=== PATIENT | female | born 1970 | race Caucasian/White ===

== ENCOUNTER 2016-10-13 21:24 | Inpatient (IN) ==
[2016-10-13 21:53] LABS: BASO% 0.1 % (0.0-0.8); EOS# 0.01 X1000 (0.0-0.7); EOS% 0.1 % (0.0-10.0); HEMATOCRIT 38.8 % (37.0-47.0); HEMOGLOBIN 14.8 g/dL (12.0-16.0); IMM GRAN# 0.03 X1000 (0.0-0.04); IMM GRAN% 0.2 % (0.0-0.5); LYMPH# 1.34 X1000 (1.2-3.4); LYMPH% 9.6 % (20.5-51.1); MANUAL DIFF NEEDED? NO; MCH 34.3 PG (27-31); MCHC 38.1 g/dL (33-37); MONO# 1.21 X1000 (0.11-0.59); MONO% 8.7 % (1.7-9.3); MPV 9.9 FL (7.4-10.4); NEUT% 81.3 % (42.2-75.2); PLT 226 X1000 (130-400); RBC 4.31 XMIL (4.2-5.4)
[2016-10-13 22:09] LABS: AGAP 15; ALBUMIN 3.1 g/dL (3.5-5.0); ALKALINE PHOSPHATASE 77 U/L (32-104); AMYLASE 135 U/L (20-200); BUN 10 mg/dL (8-22); CALCIUM 8.5 mg/dL (8.8-10.2); CHLORIDE 92 mmol/L (98-107); COSMO 254; LIPASE 159 U/L (13-60); POTASSIUM 3.8 mmol/L (3.5-5.1); SODIUM 126 mmol/L (136-145); TCO2 19 mmol/L (25-35); TOTAL BILIRUBIN 0.16 mg/dL (0.20-1.00)
[2016-10-13 22:37] LABS: GOT 27 U/L (10-30); GPT 6 U/L (10-36)
[2016-10-13] MEDS ORDERED: NS 1,000 ML IV ONE (23:40)
[2016-10-13] MEDS ORDERED: PHENERGAN IM ONE (23:40)
[2016-10-14 00:39] LABS: URINE MICRO REVIEW NEEDED? NO; URINE SOURCE CLEAN CATCH
[2016-10-14] MEDS ORDERED: ZOFRAN IV ONE ×2 (00:39→01:21)
[2016-10-14] MEDS ORDERED: MORPHINE IV ONE ×2 (00:39→01:21)
[2016-10-14 00:46] LABS: BILIRUBIN URINE NEGATIVE (NEGATIVE); BLOOD URINE NEGATIVE (NEGATIVE); COLOR YELLOW; GLUCOSE URINE NEGATIVE (NEGATIVE); LEUKOCYTES URINE NEGATIVE (NEGATIVE); NITRITE URINE NEGATIVE (NEGATIVE); PH URINE 8.5; PROTEIN URINE TRACE mg/dL (NEGATIVE); SP GRAVITY URINE 1.019; TURBIDITY URINE TURBID (CLEAR); UROBILINOGEN URINE NORMAL (NORMAL)
[2016-10-14 00:47] LABS: UR EPITHELIAL CELLS <10 /HPF (<10); URINE BACTERIA 2+ /HPF; URINE CULTURE NEEDED? YES; URINE RBC <10 /HPF (<10); URINE WBC <10 /HPF (<10)
[2016-10-14] MEDS ORDERED: NS 1,000 ML IV ONE (01:09)
[2016-10-14] MEDS: NS 1,000 ML IV SCH ×5 (03:57→21:48)
[2016-10-14] MEDS ORDERED: MORPHINE IV PRN ×2 (03:57→08:31)
[2016-10-14] MEDS: ZOFRAN IV PRN (05:42)
--- NOTE | 2016-10-14 07:41 | HISTORY AND PHYSICAL ---
CHIEF COMPLAINT: Nausea, vomiting, abdominal pain. HISTORY OF PRESENTING ILLNESS: This is a 46-year-old female with a history of hypertriglyceridemia and immune deficiency had presented to emergency department with complaint of having nausea, vomiting and epigastric pain for the past day or so. She states that she is currently being evaluated for hypertriglyceridemia at [facility] and she has further studies to be done. She states that the abdominal pain was worsening so she had come to the emergency department. In the ER, she was evaluated. She had imaging done which was consistent with pancreatitis. Did also evaluate lipase and due to presenting symptoms, it was thought that she would need hospitalization for further management. At the time of my examination, she had denied any headache, visual changes, fevers, chills, chest pain, shortness of breath, hemoptysis or weight changes but complained of abdominal pain. PAST MEDICAL HISTORY: Includes immunodeficiencies and hypertriglyceridemia. PAST SURGICAL HISTORY: None. ALLERGIES: Hydromorphone. CURRENT MEDICATIONS: As listed in the MAR. SOCIAL HISTORY: A 15 pack years history of smoking. Denies any history of alcohol or illicit drug use. FAMILY HISTORY: Positive for coronary disease in mother and father. REVIEW OF SYSTEMS: [employer] systems is as in HPI. Other systems negative. PHYSICAL EXAMINATION: GENERAL: Cooperative, friendly female. She is resting comfortably now. VITAL SIGNS: Temperature 97.7 degrees, pulse 92, respirations 20, blood pressure 105/57. She is saturating 99%. HEENT: Atraumatic, normocephalic. Extraocular movements intact. PERRLA. NECK: Supple. CHEST: Clear to auscultation. CARDIOVASCULAR: Regular rate and rhythm. ABDOMEN: Soft. Some diffuse tenderness. EXTREMITIES: No edema. NEURO: She is awake, alert, oriented x3. : No bladder distention. SKIN: Warm. LABORATORIES AND STUDIES: WBC 13.95, hemoglobin 14.8, hematocrit 38.8, platelets 226,000. Sodium 126, potassium 3.8, chloride 92, CO2 is 19, BUN is 10, creatinine 0.6, glucose is 130. Lipase is 159. ASSESSMENT: A 46-year-old female with a history of immune deficiency and hypertriglyceridemia had presented to the emergency department with a 1-day history of worsening abdominal pain. She was found to have on imaging pancreatitis. She will need hospitalization for further management. 1. Acute pancreatitis secondary to #2. 2. Hypertriglyceridemia. 3. Hyponatremia. 4. Ongoing tobacco abuse. PLAN: 1. We will admit patient to medical floor with telemetry. 2. Keep patient NPO. Continue supportive treatment with IV fluids, antiemetics, and adequate pain control. 3. We will check a lipid profile. 4. Continue with IV fluids and monitor electrolytes. 5. Counseled patient extensively on smoking cessation. 6. We will put patient on DVT prophylaxis with SCDs. 7. We will continue to follow and reassess. cc: Rao Rdz MD
--- NOTE | 2016-10-14 09:39 | Diag Imaging Result Document ---
PROCEDURE NAME: CT ABD/PELVIS W/ IV CONT ONLY - 10/13/2016 CT ABDOMEN AND PELVIS WITH IV CONTRAST: COMPARISON: 02/28/2016. FINDINGS: There has been a previous cholecystectomy. There is no evidence of significant biliary dilatation given the postcholecystectomy status. There are extensive inflammatory changes associated with the tail of the pancreas with non-loculated fluid in the region consistent with acute pancreatitis. There is no sign of pancreatic necrosis or peripancreatic abscess at this time. The pancreatic duct is not dilated. There is no portal or splenic vein thrombosis. There is no free abdominal gas or bowel obstruction identified. There is trace atherosclerotic calcification involving the distal aorta. The remainder of the solid viscera of the abdomen and pelvis and the remainder of the GI tract is essentially unremarkable. IMPRESSION: Acute pancreatitis involving the pancreatic tail as described above.
[2016-10-14] MEDS ORDERED: DILAUDID IV ONE (11:22)
[2016-10-14] MEDS ORDERED: DILAUDID IV PRN (11:42)
[2016-10-14 12:37] LABS: BASO% 0.1 % (0.0-0.8); EOS# 0.01 X1000 (0.0-0.7); EOS% 0.1 % (0.0-10.0); HEMATOCRIT 39.2 % (37.0-47.0); HEMOGLOBIN 14.5 g/dL (12.0-16.0); IMM GRAN# 0.03 X1000 (0.0-0.04); IMM GRAN% 0.2 % (0.0-0.5); LYMPH# 1.22 X1000 (1.2-3.4); LYMPH% 8.7 % (20.5-51.1); MANUAL DIFF NEEDED? NO; MCH 33.5 PG (27-31); MCV 90.5 FL (81-99); MONO# 1.04 X1000 (0.11-0.59); MONO% 7.4 % (1.7-9.3); MPV 9.9 FL (7.4-10.4); NEUT% 83.5 % (42.2-75.2); PLT 188 X1000 (130-400); RBC 4.33 XMIL (4.2-5.4)
[2016-10-14 13:05] LABS: AGAP 12; ALBUMIN 3.1 g/dL (3.5-5.0); ALKALINE PHOSPHATASE 78 U/L (32-104); BUN 6 mg/dL (8-22); CALCIUM 7.9 mg/dL (8.8-10.2); CHLORIDE 96 mmol/L (98-107); COSMO 257; GPT < 5 U/L (10-36); POTASSIUM 3.9 mmol/L (3.5-5.1); SODIUM 129 mmol/L (136-145); TCO2 21 mmol/L (25-35); TOTAL BILIRUBIN 0.34 mg/dL (0.20-1.00); TOTAL PROTEIN 6.2 g/dL (6.3-8.3)
[2016-10-14 13:42] LABS: GOT 13 U/L (10-30)
--- NOTE | 2016-10-14 13:42 | PROGRESS NOTE ---
DATE: 10/14/2016 SUBJECTIVE: This patient is still complaining about pain. I removed her morphine and I put this patient on Dilaudid p.r.n. I increased the rate of the IV fluids from 125 to 150. I will continue with the nausea and vomiting medication. OBJECTIVE: Vital Signs: Temperature 98.2 degrees, pulse 106, respiratory rate 18, blood pressure 131/77, oxygen saturation 96 on room air. HEENT: Head normocephalic. No trauma. PERRLA. Neck: Supple. No JVD. No masses. Central trachea. Chest: Clear to auscultation. No wheezing. No rales. Cardiovascular: RRR. Tachycardic. Abdomen: Soft. Tender to palpation in the epigastric and periumbilical area. No signs of peritoneal irritation at this moment. Extremities: No edema. No clubbing. No cyanosis. Neurological: The patient is alert and oriented x3. No focal neurological deficits. LABORATORY: Pending lab work today but yesterday's laboratory, WBC 13.9, hemoglobin 14.8, hematocrit 38.8, platelets 226,000. Sodium 126, potassium 3.8, chloride 92, bicarbonate 19, BUN 10, creatinine 0.6, glucose 130, calcium 8.5. Cholesterol 980. Lipase 154. ASSESSMENT AND PLAN: 1. Acute pancreatitis, likely secondary to hypertriglyceridemia. As per the patient, her triglyceride level is more than 4,000. She has been getting treatment as an outpatient but apparently it did not work. For now, we will continue with IV fluids and pain medication. She is not on any medication for the cholesterol and triglycerides and I will start this patient on Crestor. This patient will stay NPO. 2. Hypertriglyceridemia/hypercholesterolemia. Continue with IV fluids. I will start this patient Crestor. 3. Hyponatremia. Continue with IV fluids. Likely related to dehydration. 4. Ongoing tobacco abuse. This patient has been highly advised against tobacco abuse. Will continue with daily cessation education. 5. Hypogammaglobulinemia. Apparently this patient has been getting IVIG as an outpatient. This patient needs to be transferred to a private room. Dr. Momin is taking care of the IVIG treatment. cc: Michoacano Hannah MD
[2016-10-14] MEDS: NICODERM PATCH TD SCH (16:44)
[2016-10-14] MEDS: DILAUDID IV PRN ×3 (17:26→23:19)
[2016-10-14] MEDS: BENADRYL IV PRN ×2 (20:21→23:20)
[2016-10-14] MEDS ORDERED: CRESTOR PO SCH (21:00)
[2016-10-15] MEDS: DILAUDID IV PRN ×7 (02:48→23:18)
[2016-10-15] MEDS: BENADRYL IV PRN ×4 (02:49→10:00)
[2016-10-15] MEDS: NS 1,000 ML IV SCH ×3 (04:14→17:53)
[2016-10-15 05:30] LABS: MANUAL DIFF NEEDED? NO
[2016-10-15 05:37] LABS: BASO% 0.1 % (0.0-0.8); HEMATOCRIT 37.4 % (37.0-47.0); HEMOGLOBIN 13.4 g/dL (12.0-16.0); IMM GRAN# 0.01 X1000 (0.0-0.04); IMM GRAN% 0.1 % (0.0-0.5); LYMPH# 1.56 X1000 (1.2-3.4); LYMPH% 12.5 % (20.5-51.1); MCH 32.3 PG (27-31); MCHC 35.8 g/dL (33-37); MCV 90.1 FL (81-99); MONO# 0.67 X1000 (0.11-0.59); MONO% 5.4 % (1.7-9.3); MPV 9.6 FL (7.4-10.4); NEUT% 81.9 % (42.2-75.2); PLT 162 X1000 (130-400); RBC 4.15 XMIL (4.2-5.4)
[2016-10-15 05:54] LABS: AGAP 10; BUN 5 mg/dL (8-22); CALCIUM 7.5 mg/dL (8.8-10.2); CHLORIDE 101 mmol/L (98-107); COSMO 263; POTASSIUM 3.6 mmol/L (3.5-5.1); SODIUM 133 mmol/L (136-145); TCO2 22 mmol/L (25-35)
[2016-10-15] MEDS: PROTONIX IV SCH ×2 (09:47→22:19)
[2016-10-15] MEDS: ZOFRAN IV PRN ×2 (09:47→17:53)
[2016-10-15] MEDS: TORADOL IV ONE ×2 (09:57→10:47)
[2016-10-15] MEDS: NICODERM PATCH TD SCH (10:03)
--- NOTE | 2016-10-15 11:23 | PROGRESS NOTE ---
DATE: 10/15/2016 SUBJECTIVE: Patient states that she is feeling some better. She has had no further vomiting. Nausea is better. She continues to have her normal chronic pain as well as some right upper quadrant pain. She states that she feels like she is about 75% better since admission. OBJECTIVE: Vital Signs: Blood pressure is 111/63 with a heart rate of 102, respirations are 20, temperature is 98.6 degrees oral with room air sats 97-100%. HEENT: Head is normocephalic, atraumatic. Pupils equal, round, react to light. EOMs are intact. Sclerae anicteric. Mucous membranes are moist. Neck: Supple with trachea midline. Cardiovascular: Regular rate and rhythm. S1, S2 appreciated. Pulmonary: Breath sounds are clear. No increased work of breathing noted. Gastrointestinal: Abdomen is soft, nontender, nondistended with bowel sounds in all 4 quadrants. Back: No CVAT. No spine tenderness. Extremities: No clubbing, cyanosis, or edema. Calves are nontender. Pulses are palpable x4. DIAGNOSTICS: WBC is 12.4, with a hemoglobin of 13.4, hematocrit 37.4, platelets of 162,000. Sodium is 133, potassium 3.6, BUN 5, creatinine 0.5 with a glucose of 94. ASSESSMENT AND PLAN: 1. Acute pancreatitis secondary to hypertriglyceridemia. 2. Hypertriglyceridemia. 3. Hyponatremia. 4. Ongoing tobacco abuse. 5. Chronic pain with chronic narcotic use. PLAN: We will continue with IV fluids, IV antiemetics and pain control. We will start with sips of clear liquids and advance diet as she states she is feeling better. The patient is on chronic narcotics taking Percocet 10 every 4-6 hours as needed, morphine ER 45 mg b.i.d., Klonopin 1 mg b.i.d., Fioricet q.8-12 hours as needed. Once she is tolerating p.o. intake we will restart her home regimen as she states this does handle her pain and she has been on the same regimen for quite some time. For DVT prophylaxis we will continue with SCDs. For GI prophylaxis we will use Protonix IV as the patient states that she has had ulcers and she has had bleeding ulcers in the past due to NSAID use. Dictated by JANNY Hernández for Ariel Kaur MD cc: JANNY Hernández MD
[2016-10-15] MEDS: PERCOCET-5 PO PRN (17:53)
[2016-10-15] MEDS: TOPAMAX PO SCH (22:20)
[2016-10-15] MEDS: CYMBALTA PO SCH (22:20)
[2016-10-15] MEDS: ESTRACE PO SCH (22:20)
[2016-10-16] MEDS: NS 1,000 ML IV SCH ×3 (00:12→15:52)
[2016-10-16] MEDS: PERCOCET-5 PO PRN (00:12)
[2016-10-16] MEDS: DILAUDID IV PRN ×7 (03:06→23:45)
[2016-10-16 06:30] LABS: HEMATOCRIT 31.6 % (37.0-47.0); HEMOGLOBIN 10.9 g/dL (12.0-16.0); MCH 31.7 PG (27-31); MCHC 34.5 g/dL (33-37); MCV 91.9 FL (81-99); MPV 9.8 FL (7.4-10.4); RBC 3.44 XMIL (4.2-5.4)
[2016-10-16 06:41] LABS: AGAP 10; ALBUMIN 2.7 g/dL (3.5-5.0); ALKALINE PHOSPHATASE 73 U/L (32-104); AMYLASE 33 U/L (20-200); BUN 6 mg/dL (8-22); CALCIUM 8.1 mg/dL (8.8-10.2); CHLORIDE 104 mmol/L (98-107); COSMO 265; GOT 14 U/L (10-30); GPT < 5 U/L (10-36); LIPASE 103 U/L (13-60); MAGNESIUM 1.9 mg/dL (1.5-2.7); POTASSIUM 2.9 mmol/L (3.5-5.1); SODIUM 134 mmol/L (136-145); TCO2 20 mmol/L (25-35); TOTAL PROTEIN 5.8 g/dL (6.3-8.3)
[2016-10-16] MEDS ORDERED: POTASSIUM CHLORIDE 40 MEQ/SWI 40 MEQ/100 ML IVPB IV ONE (06:48)
[2016-10-16] MEDS: SODIUM CHLORIDE 0.9% INJ SCH ×2 (08:17→20:53)
[2016-10-16] MEDS: PROTONIX IV SCH ×2 (08:17→20:53)
[2016-10-16] MEDS: NICODERM PATCH TD SCH (08:17)
[2016-10-16] MEDS: ZOFRAN IV PRN (10:28)
--- NOTE | 2016-10-16 14:50 | PROGRESS NOTE ---
DATE: 10/16/2016 SUBJECTIVE: Patient states she is feeling some better. She has had no further vomiting. Her nausea is better. She has had some relief in her right upper quadrant pain. She is taking in liquids with no exacerbation of her pain. She denies any fever, chills, diarrhea, or constipation. OBJECTIVE: Vital Signs: Blood pressure is 117/70 with a heart rate of 99. Respirations are 20. Temperature is 98.4 degrees oral with room air saturations of 95% to 100%. HEENT: Head is normocephalic, atraumatic. Pupils equal, round, react to light. EOMs are intact. Sclerae anicteric. Mucous membranes are moist. Neck: Supple. Trachea midline. Cardiovascular: Regular rate and rhythm. S1 and S2 appreciated. Pulmonary: Breath sounds are clear, with no increased work of breathing noted. Gastrointestinal: Abdomen is soft, nontender, nondistended. Bowel sounds in all 4 quadrants. Back: No CVAT. No spine tenderness. Extremities: No clubbing, cyanosis, or edema. Calves are nontender. Pulses are palpable x4. LABORATORIES: WBC is 9.8 with a hemoglobin of 10.9, hematocrit 31.6, and platelets of 145,000. Sodium is 134, potassium 2.9, BUN 6, creatinine 0.5, with a glucose of 265. Triglycerides are 1833. Lipase is 103, down from 159. Urine culture reveals no growth. ASSESSMENT AND PLAN: 1. Acute pancreatitis secondary to hypertriglyceridemia. 2. Hypertriglyceridemia. 3. Hyponatremia. 4. Ongoing tobacco abuse. 5. Chronic pain with chronic narcotic use. 6. Hypokalemia. We will continue with IV hydration. She is tolerating full liquids well. We will get her to slowly increase her diet. She has been getting out of bed. We will encourage her to be up in the chair for meals and to walk more. We will continue with SCDs. We will change her over to Prilosec oral. Hopefully, we can start weaning her pain medicine and will switch her over to her home routine. We will trend electrolytes and replete as appropriate. Dictated by JANNY Hernández for Ariel Kaur MD cc: JANNY Hernández MD
[2016-10-16] MEDS: BENADRYL IV PRN ×3 (17:03→23:55)
[2016-10-16] MEDS: TOPAMAX PO SCH (20:53)
[2016-10-16] MEDS: CYMBALTA PO SCH (20:53)
[2016-10-16] MEDS: ESTRACE PO SCH (20:53)
[2016-10-17] MEDS: DILAUDID IV PRN ×3 (03:18→09:14)
[2016-10-17] MEDS: BENADRYL IV PRN (03:19)
[2016-10-17 03:37] VITALS: BP 112/67
[2016-10-17 06:01] LABS: HEMATOCRIT 30.5 % (37.0-47.0); HEMOGLOBIN 10.4 g/dL (12.0-16.0); MCH 31.3 PG (27-31); MCHC 34.1 g/dL (33-37); MCV 91.9 FL (81-99); MPV 9.2 FL (7.4-10.4); RBC 3.32 XMIL (4.2-5.4)
[2016-10-17] MEDS: NS 1,000 ML IV SCH (06:06)
[2016-10-17 07:01] LABS: AGAP 11; ALBUMIN 2.7 g/dL (3.5-5.0); ALKALINE PHOSPHATASE 84 U/L (32-104); AMYLASE 20 U/L (20-200); BUN 6 mg/dL (8-22); CALCIUM 8.3 mg/dL (8.8-10.2); CHLORIDE 104 mmol/L (98-107); COSMO 265; GOT 14 U/L (10-30); GPT < 5 U/L (10-36); LIPASE 73 U/L (13-60); POTASSIUM 3.3 mmol/L (3.5-5.1); SODIUM 134 mmol/L (136-145); TCO2 19 mmol/L (25-35); TOTAL PROTEIN 5.9 g/dL (6.3-8.3)
[2016-10-17] MEDS: PROTONIX IV SCH (09:15)
[2016-10-17] MEDS: NICODERM PATCH TD SCH (09:15)
[2016-10-17] MEDS ORDERED: KLOR-CON PO ONE (09:50)
--- NOTE | 2016-10-22 23:38 | PROVIDER DOCUMENTATION ---
This chart was entered by Angelica Mccrary Scribe, acting as scribe for Salomón Wick MD. HPI-Abdominal Pain/GI Problem <Jeni Calderon - Last Filed: 10/14/16 01:22> - General Source: patient - History of Present Illness-ABD Nature of Presenting Problems: 46 year old F presents to the ED with a cc of ABD pain, nausea, and back pain with an onset of last night. PT states that she has noticed some blood in stool. PT states that she has been taking 3 Excedrin for the last few days. Since being in the ED pt has had 2 episodes of vomiting. Abdominal Pain Onset Location: reports: generalized abdomen Pain Radiation: reports: no radiation Quality of Pain: reports: aching Severity in ED: reports: mild Onset/Duration: reports: last night Timing: reports: still present Activities at Onset: reports: none Modifying Factors: improves with: nothing Associated Symptoms: reports: back/neck pain, nausea, vomiting Bruising or Bleeding Gums?: No Similar Symptoms Previously?: No Recently seen or treated by another doctor?: No <Salomón Wick - Last Filed: 10/22/16 23:38> - General Chief Complaint: Abdominal Pain Stated Complaint: SAGE, BODY PAIN Time Seen by Provider: 10/13/16 22:24 Allergies/Adverse Reactions: Patient Allergies Allergy/AdvReac Type Severity Reaction Status Date / Time No Known Allergies Allergy Verified 10/14/16 15:06 Home Medications: Home Medication List Medication Instructions Recorded Confirmed Last Taken Type Duloxetine [Cymbalta] 60 mg PO HS 04/04/14 10/13/16 10/12/16 History Estradiol [Estrace] 2 mg PO HS 04/04/14 10/13/16 10/12/16 History Topiramate [Topamax] 100 mg PO QHS 04/04/14 10/14/16 10/12/16 History Oxycodone HCl/Acetaminophen 1 each PO TID PRN 10/13/16 10/13/16 10/13/16 History [Percocet 5-325 mg Tablet] Review of Systems - Adult - REVIEW OF SYSTEMS - ADULT Constitutional: denies: chills, fever Eyes: reports: no symptoms reported Ears, Nose, Mouth & Throat: reports: no symptoms reported Cardiovascular: reports: no symptoms reported Respiratory: denies: cough, shortness of breath Gastrointestinal: reports: abdominal pain, nausea, vomiting. denies: diarrhea Genitourinary: reports: no symptoms reported Musculoskeletal: reports: back pain. denies: neck pain Integumentary: reports: no symptoms reported Neurological: reports: no symptoms reported Psychiatric: reports: no symptoms reported Endocrine: reports: no symptoms reported Hematologic/Lymphatic: reports: no symptoms reported Allergic/Immunologic: reports: no symptoms reported All Other Systems: Reviewed and Negative <Salomón Wick - Last Filed: 10/22/16 23:38> Past History - Adult - PAST MEDICAL HISTORY-ADULT Review of Records: reports: Nursing Assessment Review, Medications Reviewed Major Childhood Illnesses: reports: denies history Cardiovascular: reports: denies history Respiratory: reports: denies history Gastrointestinal: reports: GERD Obstetrical/Gynecological: reports: denies history Genitourinary: reports: denies history Musculoskeletal: reports: denies history Neurological: reports: denies history Psychiatric: reports: depression Endocrine/Immune: reports: denies history Other Conditions: reports: denies history - PRIOR SURGERIES/PROCEDURES Surgical/Procedure History: reports: cholecystectomy, hysterectomy, orthopedic ( extremity) (L knee) - IMMUNIZATION STATUS Childhood Immunizations: See Nurse Assessment Flu Vaccine: See Nurse Assessment - FAMILY HISTORY Family History: reviewed, not pertinent - SOCIAL HISTORY Smoking: cigarettes Provider spent 3-5 mins advising pt. on dangers of tobacco.: Discussed manners to quit use, and f/u contacts for add'l counseling. Substance Use: none/never Alcohol Use Frequency: never <Salomón Wick - Last Filed: 10/22/16 23:38> Physical Exam-General - PHYSICAL EXAM-ADULT Initial Vital Signs Reviewed: Yes - CONSTITUTIONAL General Appearance: appears well, alert, no apparent distress - RESPIRATORY Respiratory: chest non-tender, lungs clear, normal breath sounds - CARDIOVASCULAR Cardiovascular: normal peripheral pulses, regular rate, rhythm, no edema - GASTROINTESTINAL (ABDOMEN) Abdominal Exam: normal bowel sounds, soft, tenderness (generalized but greater in LLQ) - MUSCULOSKELETAL Back Exam: no CVA tenderness - SKIN Integumentary: normal color, normal turgor, warm/dry - PSYCHIATRIC Psych/Mental Status: normal mood/affect, normal thought content, normal thought process, oriented x 3 <Salomón Wick - Last Filed: 10/22/16 23:38> Progress - PLAN OF CARE/RESULTS Progress/Plan/Lab Results: Vital Signs - 8 hr 10/13/16 21:26 Temperature 97.7 F Pulse Rate 92 H Respiratory Rate 20 Blood Pressure 105/57 O2 Sat by Pulse Oximetry 99 Laboratory Results - last 24 hr 10/13/16 10/13/16 10/14/16 21:30 21:30 00:10 WBC 13.95 H RBC 4.31 Hgb 14.8 Hct 38.8 MCV 90.0 MCH 34.3 H MCHC 38.1 H RDW Std Deviation 12.3 Plt Count 226 MPV 9.9 Immature Gran % (Auto) 0.2 Neut % (Auto) 81.3 H Lymph % (Auto) 9.6 L Grant % (Auto) 8.7 Eos % (Auto) 0.1 Baso % (Auto) 0.1 Immature Gran # (Auto) 0.03 Neut # (Auto) 11.34 H Lymph # (Auto) 1.34 Grant # (Auto) 1.21 H Eos # (Auto) 0.01 Baso # (Auto) 0.02 Sodium 126 L Potassium 3.8 Chloride 92 L Carbon Dioxide 19 L Anion Gap 15 BUN 10 Creatinine 0.6 Estimated GFR/1.73 m2 > 60 BUN/Creatinine Ratio 17 Glucose 130 H Calculated Osmolality 254 Calcium 8.5 L Total Bilirubin 0.16 L AST 27 ALT 6 L Alkaline Phosphatase 77 Total Protein 7.0 Albumin 3.1 L Globulin 3.9 Albumin/Globulin Ratio 0.8 Amylase 135 Lipase 159 H Urine Source CLEAN CATCH Urine Color YELLOW Urine Turbidity TURBID Urine pH 8.5 Ur Specific [place] 1.019 Urine Protein TRACE A Ur Glucose (Stick) NEGATIVE Ur Ketones (Stick) NEGATIVE Urine Blood NEGATIVE Urine Nitrite NEGATIVE Urine Bilirubin NEGATIVE Urobilinogen Dipstick NORMAL Urine Leukocytes NEGATIVE Urine WBC (Auto) <10 Urine RBC (Auto) <10 U Epithel Cells (Auto) <10 Urine Bacteria (Auto) 2+ Orders Category Date Time Status Saline Loc DIRECTED Care 10/13/16 21:30 Active NPO Diet 10/13/16 21:[address] ABD/PELVIS W/ IV CONT ONLY [CT] Stat Exams 10/13/16 23:40 Taken AMYLASE [CHEM] Stat Lab 10/13/16 21:30 Completed CBC WITH ELECTRONIC DIFF [HEME] Stat Lab 10/13/16 21:30 Completed COMPREHENSIVE METABOLIC PANEL [CHEM] Stat Lab 10/13/16 21:30 Completed LIPASE [CHEM] Stat Lab 10/13/16 21:30 Completed URINALYSIS W/POSS RFLX CULT [URINALYSIS] Stat Lab 10/14/16 00:10 Completed URINE CULTURE [RM] Routine Lab 10/14/16 00:56 Received 0.9% Sodium Chloride Inj [Ns] 1,000 ml Med 10/13/16 23:40 Discontinued IV 999 mls/hr Morphine Med 10/14/16 00:39 Discontinued 4 mg IV NOW ONE Ondansetron [Zofran] Med 10/14/16 00:39 Discontinued 4 mg IV NOW ONE Promethazine [Phenergan] Med 10/13/16 23:40 Discontinued 25 mg IM NOW ONE Discussed admission with pt. Result Diagrams: 10/13/16 21:30 10/13/16 21:30 - CT/MRI 1 CT Study: Abdomen, Pelvis Impression: See EMR Report (Findings suggesting acute pancreatitis involving the pancreatic tail, per Dr. Westfall) - CONSULTS/PCP/HOSPITALIST Notification #1 *Consult/PCP/Hospitalist*: Dr. Rdz Time Discussed: 01:10 Reason/Comments: acute pancreatitis Consult Disposition: Admit <Jeni Calderon - Last Filed: 10/14/16 01:22> - PLAN OF CARE/RESULTS Progress/Plan/Lab Results: Vital Signs - 8 hr 10/13/16 21:26 Temperature 97.7 F Pulse Rate 92 H Respiratory Rate 20 Blood Pressure 105/57 O2 Sat by Pulse Oximetry 99 Laboratory Results - last 24 hr 10/13/16 10/13/16 21:30 21:30 WBC 13.95 H RBC 4.31 Hgb 14.8 Hct 38.8 MCV 90.0 MCH 34.3 H MCHC 38.1 H RDW Std Deviation 12.3 Plt Count 226 MPV 9.9 Immature Gran % (Auto) 0.2 Neut % (Auto) 81.3 H Lymph % (Auto) 9.6 L Grant % (Auto) 8.7 Eos % (Auto) 0.1 Baso % (Auto) 0.1 Immature Gran # (Auto) 0.03 Neut # (Auto) 11.34 H Lymph # (Auto) 1.34 Grant # (Auto) 1.21 H Eos # (Auto) 0.01 Baso # (Auto) 0.02 Sodium 126 L Potassium 3.8 Chloride 92 L Carbon Dioxide 19 L Anion Gap 15 BUN 10 Creatinine 0.6 Estimated GFR/1.73 m2 > 60 BUN/Creatinine Ratio 17 Glucose 130 H Calculated Osmolality 254 Calcium 8.5 L Total Bilirubin 0.16 L AST 27 ALT 6 L Alkaline Phosphatase 77 Total Protein 7.0 Albumin 3.1 L Globulin 3.9 Albumin/Globulin Ratio 0.8 Amylase 135 Lipase 159 H Orders Category Date Time Status Saline Loc DIRECTED Care 10/13/16 21:30 Active NPO Diet 10/13/16 21:[address] ABD/PELVIS W/ IV CONT ONLY [CT] Stat Exams 10/13/16 23:40 Ordered AMYLASE [CHEM] Stat Lab 10/13/16 21:30 Completed CBC WITH ELECTRONIC DIFF [HEME] Stat Lab 10/13/16 21:30 Completed COMPREHENSIVE METABOLIC PANEL [CHEM] Stat Lab 10/13/16 21:30 Completed LIPASE [CHEM] Stat Lab 10/13/16 21:30 Completed URINALYSIS W/POSS RFLX CULT [URINALYSIS] Stat Lab 10/13/16 21:30 Uncollected 0.9% Sodium Chloride Inj [Ns] 1,000 ml Med 10/13/16 23:40 Active IV 999 mls/hr Promethazine [Phenergan] Med 10/13/16 23:40 Discontinued 25 mg IM NOW ONE Result Diagrams: 10/17/16 05:40 10/17/16 05:40 <Salomón Wick - Last Filed: 10/22/16 23:38> Departure - Departure Time of Disposition Decision: 01:04 Certified Medical Emergency: Emergent <Jeni Calderon - Last Filed: 10/14/16 01:22> - Departure Time of Disposition Decision: 23:37 Certified Medical Emergency: Emergent - Critical Care Note This patient required my direct personal management.: No <Salomón Wick - Last Filed: 10/22/16 23:38> - Departure DIAGNOSIS: Acute pancreatitis, Leukocytosis, Hyponatremia, Hypercholesteremia Disposition: ADMITTED INPATIENT 09 Condition: Stable Attestation - Physician/ NICKO Attestation Patient care was provided by Advanced Practice Provider:: Yes Advanced Practice Provider:: Jeni Calderon Advanced Practice Provider documentation review:: The Mid-level provider documentation, treatment plan and medical decision making was reviewed by the physician who agrees with all treatment and medical decision making by the MLP. <Jeni Calderon - Last Filed: 10/14/16 01:22> This chart was documented by the indicated scribe, (Angelica Mccrary Scribe) and accurately reflects the services I performed and decisions made by me, Salomón Wick MD, as attested by the provider's signature.
--- NOTE | 2016-11-15 16:02 | DISCHARGE SUMMARY ---
ADMISSION DATE: 10/13/2016 DISCHARGE DATE: 10/17/2016 DIAGNOSES: 1. Acute pancreatitis secondary to #2. 2. Hypertriglyceridemia. 3. Hyponatremia. 4. Ongoing tobacco use. 5. Hyponatremia resolved. 6. Hypokalemia resolved. 7. Chronic pain with chronic narcotic use. DIAGNOSTICS: CT of the abdomen and pelvis revealed acute pancreatitis involving the pancreatic tail. MICROBIOLOGY: Urine culture revealed no growth. HOSPITAL COURSE: Mr. Tong presented to the emergency room with abdominal pain, nausea and vomiting. She has a history of pancreatitis secondary to hypertriglyceridemia with initial labs amylase 135, lipase 159. She was held NPO, given IV hydration and pain control. Thankfully she did improve. We were able to advance her diet to a GI soft which she tolerated well and is able to go home to followup with [facility] as scheduled. We did discuss with the patient tobacco cessation including the perils of continuing to smoke also with ways to help quit. She just states that she has no interest in stopping at this time. DISCHARGE PHYSICAL EXAMINATION: Cardiovascular: Regular rate and rhythm. S1 and S2 appreciated. Pulmonary: Breath sounds are clear with no increased work of breathing noted. Gastrointestinal: Abdomen soft, nontender with bowel sounds in all 4 quadrants. Extremities: No clubbing, cyanosis, or edema. Calves are nontender. Pulses palpable x4. DISCHARGE MEDICATIONS: Topamax 100 mg at bedtime, Percocet 5/325 t.i.d. p.r.n., Estrace 2 mg p.o. at bedtime, Cymbalta 60 p.o. at bedtime. FOLLOWUP: 1. She is to follow up with her primary care physician as needed. 2. She is to follow up with [facility] at the scheduled appointment to continue her workup. She is being discharged home in stable condition with family members. TIME SPENT: This is a greater than 30 minute discharge. Dictated by JANNY Hernández for Ariel Kaur MD cc: JANNY Hernández MD
== END 2016-10-17 11:45 | disposition home or self-care (01) ==
LOC: ED 21:24 → SUATTDRO 21:25 → EDIPHOLD 21:25 → P.MEDSURG 10-14 12:38
PROVIDERS: ATTEND Family Medicine